=== PATIENT | male | born 1970 | race Two or more races ===

== ENCOUNTER 2022-03-13 09:15 | Outpatient (CLI) | payer SELFPAY | END 2022-03-13 09:16 | disposition critical access hospital (66) | LOC: EMS 09:15 | DX: S00.83XA Contusion of other part of head, initial encounter (principal); V67.5XXA Driver of heavy transport vehicle injured in collision with fixed or stationary object in traffic accident, initial encounter; Y92.413 State road as the place of occurrence of the external cause | CPT/HCPCS: A0425; A0427 ==

== ENCOUNTER 2022-03-13 09:24 | Emergency (ER) | payer SELFPAY ==
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
[2022-03-13] MEDS ORDERED: LIDOCAINE 1% 2 ML VIAL SUBQ STA (10:31)
[2022-03-13] MEDS ORDERED: LIDOCAINE-MPF 1% 5 ML VIAL SUBQ STA (10:40)
[2022-03-13] MEDS ORDERED: KETOROLAC 15 MG/ML VIAL IVP STA (10:42)
[2022-03-13 13:06] VITALS: BP 123/109
[2022-03-13 13:14] LABS: MUDS CUTOFF CONCENTRATIONS CUTOFF CONC BELOW:
[2022-03-13 13:26] LABS: AMPHETAMINE SCREEN,URINE NEGATIVE (NEGATIVE); BARBITURATE SCREEN,UR NEGATIVE (NEGATIVE); BENZODIAZEPINES SCREEN, URINE NEGATIVE (NEGATIVE); COCAINE SCREEN URINE NEGATIVE (NEGATIVE); METHADONE SCREEN, URINE NEGATIVE (NEGATIVE); METHAMPHETAMINES SCREEN, URINE NEGATIVE (NEGATIVE); OPIATE SCREEN, URINE NEGATIVE (NEGATIVE); OXYCODONE SCREEN, URINE NEGATIVE (NEGATIVE); PROPOXYPHENE SCREEN, URINE NEGATIVE (NEGATIVE); THC CANNABINOID SCREEN, URINE NEGATIVE (NEGATIVE); TRICYCLIC ANTIDEPRESSANT,URINE NEGATIVE (NEGATIVE)
== END 2022-03-13 13:50 | disposition home or self-care (01) ==
LOC: ED 09:24
DX: S06.0X0A Concussion without loss of consciousness, initial encounter (principal); S50.01XA Contusion of right elbow, initial encounter; S70.12XA Contusion of left thigh, initial encounter; S61.412A Laceration without foreign body of left hand, initial encounter; V68.0XXA Driver of heavy transport vehicle injured in noncollision transport accident in nontraffic accident, initial encounter
CPT/HCPCS: 12001; 80306; 80320; 99282